=== PATIENT | female | born 1945 | race Caucasian/White ===

== ENCOUNTER 2018-05-09 10:37 | Emergency (ER) | payer OTHER | END 2018-05-09 11:44 | disposition home or self-care (01) | LOC: EDH 10:37 | DX: S82.831A Other fracture of upper and lower end of right fibula, initial encounter for closed fracture (principal); M81.0 Age-related osteoporosis without current pathological fracture; V18.2XXA Unspecified pedal cyclist injured in noncollision transport accident in nontraffic accident, initial encounter; Y93.55 Activity, bike riding; Y92.89 Other specified places as the place of occurrence of the external cause; Y99.8 Other external cause status | CPT/HCPCS: 29515; 73610; 73630 ==

== ENCOUNTER → 2018-06-23 | Outpatient (CLI) | payer OTHER | END | disposition home or self-care (01) | LOC: RAH 10:28 | PROVIDERS: ATTEND Family Medicine | DX: S82.831D Other fracture of upper and lower end of right fibula, subsequent encounter for closed fracture with routine healing (principal); X58.XXXD Exposure to other specified factors, subsequent encounter | CPT/HCPCS: 73600; 73620 ==

== ENCOUNTER → 2018-07-09 | Outpatient (CLI) | payer OTHER | END | disposition home or self-care (01) | LOC: RAH 11:51 | PROVIDERS: ATTEND Family Medicine | DX: S82.831D Other fracture of upper and lower end of right fibula, subsequent encounter for closed fracture with routine healing (principal); M77.31 Calcaneal spur, right foot; M85.871 Other specified disorders of bone density and structure, right ankle and foot; M19.071 Primary osteoarthritis, right ankle and foot; X58.XXXD Exposure to other specified factors, subsequent encounter | CPT/HCPCS: 73600; 73620 ==

== ENCOUNTER 2021-11-18 10:08 | Emergency (ER) | payer OTHER ==
[~2021-11-18] VITALS: Ht 165.1 cm; Wt 72.6 kg
[2021-11-18 11:56] LABS: BASOPHILS % (AUTO) 0.5 % (0.0-5.0); EOSINOPHILS % (AUTO) 1.7 % (0.0-8.0); HEMATOCRIT 40.5 % (36-48); MEAN CORPUSCULAR HEMOGLOBIN 29.4 pg (27.0-33.0); MEAN CORPUSCULAR HGB CONC 33.6 g/dL (32.0-36.0); MEAN CORPUSCULAR VOLUME 87.7 fL (79-99); MONOCYTES % (AUTO) 5.7 % (3.0-13.0); NEUTROPHILS % (AUTO) 72.9 % (40.0-77.0); PLATELET COUNT (AUTO) 262 K/uL (130-400); RED BLOOD CELL COUNT(AUTO) 4.62 MIL/uL (4.00-5.50); RED CELL DISTRIBUTION WIDTH 13.2 % (11.0-15.5); WHITE BLOOD COUNT (AUTO) 5.8 K/uL (4.8-10.8)
[2021-11-18] MEDS ORDERED: 0.9%NACL 1000ML 1,000 ML IV ONE (12:00)
[2021-11-18 12:10] LABS: POTASSIUM 3.4 mmol/L (3.5-5.1)
[2021-11-18 12:15] LABS: ALBUMIN 3.9 g/dL (3.5-5.0); TOTAL PROTEIN, SERUM 7.2 g/dL (6.0-8.3)
[2021-11-18 13:11] VITALS: BP 172/76
[2021-11-18] MEDS ORDERED: POTASSIUM BICARB/CIT AC 25 MEQ TABLET.EFF PO STA (14:11)
== END 2021-11-18 14:24 | disposition home or self-care (01) ==
LOC: EDH 10:08
DX: U07.1 COVID-19 (principal); E86.0 Dehydration
CPT/HCPCS: 99285; 71045; 96360; 87426; 96361; 80053; 85025; 87804 ×2; 36415; 93005; J7030

== ENCOUNTER → 2022-03-15 | Outpatient (CLI) | payer OTHER | END | disposition home or self-care (01) | LOC: RAH 11:55 | PROVIDERS: ATTEND Family Medicine | DX: M25.562 Pain in left knee (principal); W19.XXXA Unspecified fall, initial encounter; Y93.89 Activity, other specified; Y92.89 Other specified places as the place of occurrence of the external cause; Y99.8 Other external cause status | CPT/HCPCS: 73560 ==

== ENCOUNTER 2022-04-22 08:33 | Emergency (ER) | payer OTHER ==
[~2022-04-22] VITALS: Ht 165.1 cm; Wt 72.6 kg
[2022-04-22 08:51] LABS: BASOPHILS % (AUTO) 1.8 % (0.0-5.0); EOSINOPHILS % (AUTO) 6.5 % (0.0-8.0); HEMATOCRIT 37.3 % (36-48); LYMPHOCYTES % (AUTO) 33.9 % (21.0-51.0); MEAN CORPUSCULAR HGB CONC 33.2 g/dL (32.0-36.0); MEAN CORPUSCULAR VOLUME 90.3 fL (79-99); NEUTROPHILS % (AUTO) 50.5 % (40.0-77.0); PLATELET COUNT (AUTO) 206 K/uL (130-400); RED BLOOD CELL COUNT(AUTO) 4.13 MIL/uL (4.00-5.50); RED CELL DISTRIBUTION WIDTH 13.1 % (11.0-15.5); WHITE BLOOD COUNT (AUTO) 3.9 K/uL (4.8-10.8)
[2022-04-22 09:05] LABS: ALBUMIN 3.9 g/dL (3.5-5.0); CREATININE 1.2 mg/dL (0.5-1.5); POTASSIUM 3.8 mmol/L (3.5-5.1); TOTAL PROTEIN, SERUM 7.1 g/dL (6.0-8.3)
[2022-04-22 09:23] LABS: B-TYPE NATRIURETIC PEPTIDE 5 pg/mL (0-100)
[2022-04-22] MEDS ORDERED: PANTOPRAZOLE 40 MG/VIAL IVP STA (09:37)
[2022-04-22] MEDS ORDERED: PANT40TA55 PO (10:58)
[2022-04-22 10:59] VITALS: BP 153/63
== END 2022-04-22 11:14 | disposition home or self-care (01) ==
LOC: EDH 08:33
DX: K21.9 Gastro-esophageal reflux disease without esophagitis (principal); M19.90 Unspecified osteoarthritis, unspecified site; Z90.49 Acquired absence of other specified parts of digestive tract
CPT/HCPCS: 99285; 96374; 71045; 83735; 84484; 80053; 83880; 85025; 36415; 93005; C9113